=== PATIENT | female | born 1975 | race Caucasian/White ===

== ENCOUNTER 2016-03-29 09:41 | Emergency (ER) | payer BC ==
[2016-03-29 11:43] VITALS: BP 103/63
--- NOTE | 2016-03-29 12:01 | UC ---
Throat Pain/Nasal Shahid HPI - HPI Summary HPI Summary: Sore throat body aches and fever for 3 days - History of Current Complaint Chief Complaint: UCGeneralIllness Stated Complaint: FEVER,SORE THROAT Time Seen by Provider: 03/29/16 12:00 Hx Obtained From: Patient Hx Last Menstrual Period: 03/23/16 ?: No Onset/Duration: Sudden Onset, Lasting Days - 3, Still Present Severity: Moderate Pain Intensity: 7 Pain Scale Used: 0-10 Numeric Cough: None Associated Signs & Symptoms: Positive: Fever - Allergies/Home Medications Allergies/Adverse Reactions: Allergies Allergy/AdvReac Type Severity Reaction Status Date / Time Codeine Allergy Intermediate Hallucinati Verified 03/29/16 11:43 ons Phenytoin [From Dilantin] Allergy Intermediate Hives Verified 03/29/16 11:43 Home Medications: Home Medications Acetaminophen [Acetaminophen Extra Stren] 1,000 mg PO DAILY 03/29/16 [History Confirmed 03/29/16] Escitalopram Oxalate [Lexapro] 10 mg PO DAILY 03/29/16 [History Confirmed ] Ramelteon (NF) [Rozerem (NF)] 8 mg PO DAILY 03/29/16 [History Confirmed 03/29/16 ] PMH/Surg Hx/FS Hx/Imm Hx Previously Healthy: No Endocrine History Of: Denies: Diabetes, Thyroid Disease Cardiovascular History Of: Reports: Cardiac Disorders - SVT (Ablation in 2006) Denies: Hypertension Respiratory History Of: Denies: COPD, Asthma GI/ History Of: Reports: 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 Cardiac Ablation for AV Node Tachycardia,, AV MALFORMATION SURGERY- 1995,, - Family History Known Family History: Positive: Hypertension - Social History Occupation: Employed Full-time - teacher Lives: With Family Alcohol Use: None Substance Use Type: None Smoking Status (MU): Never Smoked Tobacco Review of Systems Constitutional: Fever, Chills, Fatigue Skin: Negative Eyes: Negative ENT: Sore Throat Respiratory: Negative Cardiovascular: Negative Gastrointestinal: Negative Genitourinary: Negative Motor: Negative Neurovascular: Negative Musculoskeletal: Negative Neurological: Negative Psychological: Negative All Other Systems Reviewed And Are Negative: Yes Physical Exam Triage Information Reviewed: Yes Appearance: Well-Nourished, Ill-Appearing - mild, Pain Distress - mild Vital Signs: Initial Vital Signs Temp 98.5 F 03/29/16 11:39 Pulse 90 03/29/16 11:39 Resp 16 03/29/16 11:39 BP 103/63 03/29/16 11:39 Pulse Ox 99 03/29/16 11:39 Vital Signs Reviewed: Yes Eye Exam: Normal Eyes: Positive: Conjunctiva Clear ENT Exam: Other ENT: Positive: Hearing grossly normal, Pharyngeal erythema, TMs normal. Negative: Nasal congestion, Nasal drainage, Tonsillar swelling, Tonsillar exudate, Trismus, Muffled/hoarse voice Dental Exam: Normal Neck: Positive: Supple, Tenderness @ - anterior cervical lymph nodes, Enlarged Nodes @ - anterior cervical Respiratory Exam: Normal Respiratory: Positive: Chest non-tender, Lungs clear, Normal breath sounds, No respiratory distress, No accessory muscle use Cardiovascular Exam: Normal Cardiovascular: Positive: RRR, No Murmur, Pulses Normal, Brisk Capillary Refill Musculoskeletal Exam: Normal Musculoskeletal: Positive: Strength Intact, ROM Intact, No Edema Neurological Exam: Normal Neurological: Positive: Alert, Muscle Tone Normal Psychological Exam: Normal Skin Exam: Normal Diagnostics - Laboratory Diagnostic Studies Completed/Ordered: RST (+) Throat Pain/Nasal Course/Dx - Course Course Of Treatment: fluids, amoxicillin, rest, ibuprofen follow with pcp - Differential Dx/Diagnosis Differential Diagnosis/HQI/PQRI: Otitis Media, Pharyngitis, Sinusitis, URI Provider Diagnoses: Strep Pharyngitis Discharge - Discharge Plan Condition: Stable Disposition: HOME Prescriptions: Amoxicillin CAP* 500 mg PO Q12H #20 cap Patient Education Materials: Amoxicillin (By mouth), Strep Throat (ED) Forms: *Work Release Referrals: Salena Glover MD [Primary Care Provider] - If Needed
[2016-03-29] MEDS ORDERED: Ibuprofen TAB* 600 MG PO ONE (12:10)
== END 2016-03-29 12:32 | disposition home or self-care (01) ==
LOC: UCCORT 09:41
DX: J02.0 Streptococcal pharyngitis (principal); R50.9 Fever, unspecified; N28.89 Other specified disorders of kidney and ureter; I47.1 Supraventricular tachycardia; F41.9 Anxiety disorder, unspecified; G47.00 Insomnia, unspecified; Z87.440 Personal history of urinary (tract) infections; Z88.5 Allergy status to narcotic agent
CPT/HCPCS: 87651; 99212; A9270-GY; G0463

== ENCOUNTER 2016-07-22 14:32 | Emergency (ER) | payer BC ==
[2016-07-22 15:00] VITALS: BP 98/59
--- NOTE | 2016-07-22 15:12 | UC ---
Throat Pain/Nasal Shahid HPI - HPI Summary HPI Summary: patient has had sore throat since last night - History of Current Complaint Chief Complaint: UCRespiratory Stated Complaint: FEVER,THROAT Time Seen by Provider: 07/22/16 15:03 Hx Obtained From: Patient Hx Last Menstrual Period: 06/25/16 ?: No Onset/Duration: Sudden Onset, Lasting Days - 1 Severity: Moderate Cough: None Associated Signs & Symptoms: Positive: Dysphagia - Allergies/Home Medications Allergies/Adverse Reactions: Allergies Allergy/AdvReac Type Severity Reaction Status Date / Time Codeine Allergy Intermediate Hallucinati Verified 07/22/16 15:00 ons Phenytoin [From Dilantin] Allergy Intermediate Hives Verified 07/22/16 15:00 PMH/Surg Hx/FS Hx/Imm Hx Previously Healthy: Yes Endocrine History Of: Denies: Diabetes, Thyroid Disease Cardiovascular History Of: Reports: Cardiac Disorders - SVT (Ablation in 2006) Denies: Hypertension Respiratory History Of: Denies: COPD, Asthma GI/ History Of: Reports: 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 Cardiac Ablation for AV Node Tachycardia,, AV MALFORMATION SURGERY- 1995,,. Uteroscopy 2016 - Family History Known Family History: Positive: Hypertension - Social History Alcohol Use: None Substance Use Type: None Smoking Status (MU): Never Smoked Tobacco Review of Systems Constitutional: Fatigue Skin: Negative Eyes: Negative ENT: Sore Throat Respiratory: Negative Cardiovascular: Negative Gastrointestinal: Negative Genitourinary: Negative Motor: Negative Neurovascular: Negative Musculoskeletal: Negative Neurological: Headache Psychological: Negative All Other Systems Reviewed And Are Negative: Yes Physical Exam Triage Information Reviewed: Yes Appearance: Well-Appearing, Well-Nourished, Pain Distress Vital Signs: Initial Vital Signs Temp 99.7 F 07/22/16 14:55 Pulse 90 07/22/16 14:55 Resp 16 07/22/16 14:55 BP 98/59 07/22/16 14:55 Pulse Ox 98 07/22/16 14:55 Vital Signs Reviewed: Yes Eye Exam: Normal Eyes: Positive: Conjunctiva Clear ENT Exam: Normal ENT: Positive: Hearing grossly normal, Pharyngeal erythema Dental Exam: Normal Neck exam: Normal Neck: Positive: Supple, Nontender, No Lymphadenopathy Respiratory Exam: Normal Respiratory: Positive: Chest non-tender, Lungs clear, Normal breath sounds Cardiovascular Exam: Normal Cardiovascular: Positive: RRR, No Murmur, Pulses Normal Abdominal Exam: Normal Abdomen Description: Positive: Nontender, No Organomegaly, Soft Bowel Sounds: Positive: Present Musculoskeletal Exam: Normal Musculoskeletal: Positive: Strength Intact, ROM Intact, No Edema Neurological Exam: Normal Neurological: Positive: Alert, Muscle Tone Normal Psychological Exam: Normal Skin Exam: Normal Throat Pain/Nasal Course/Dx - Course Course Of Treatment: hx obtained, exam performed, meds reviewed, rapid strep obtained and is negative - Differential Dx/Diagnosis Differential Diagnosis/HQI/PQRI: Influenza, Laryngitis, Otitis Media, Pharyngitis, Sinusitis, URI Provider Diagnoses: Pharyngitis Discharge - Discharge Plan Condition: Stable Disposition: HOME Patient Education Materials: Pharyngitis (ED) Additional Instructions: 1. Salt water gargles, Mucinex twice a day. 2. increase fluid intake and get plenty of rest.
== END 2016-07-22 15:22 | disposition home or self-care (01) ==
LOC: UCCORT 14:32
DX: J02.9 Acute pharyngitis, unspecified (principal)
CPT/HCPCS: 87651; 99211; G0463

== ENCOUNTER 2017-09-14 15:48 | Emergency (ER) | payer BC ==
[2017-09-14 18:41] VITALS: BP 105/63
[2017-09-14] MEDS ORDERED: methylPREDNISolone 125 MG* 2 ML VIAL IM ONE (19:06)
--- NOTE | 2017-09-14 19:18 | UC ---
Skin Complaint HPI - HPI Summary HPI Summary: Patient presents complaining of a rash. It began 2 days ago on the left side of her chest and she notes it to be itching. She states the rash is now diffuse with diffuse itching. She did self treating with [id number] Benadryl which relieved some of the itching. She reports that she did do some bleeding earlier in the week but she also ate shiitake mushrooms on . Those are the only 2 think she can identifies being or different she denies any acute current or recent illness. She has no cough or short of breath and no fever. - History of Current Complaint Chief Complaint: UCRash Time Seen by Provider: 09/14/17 18:52 Stated Complaint: RASH Hx Obtained From: Patient Hx Last Menstrual Period: 08/24/17 Onset/Duration: Gradual Onset Timing: Constant Pain Intensity: 0 Alleviating Factor(s): Antihistamines Associated Signs & Symptoms: Positive: Rash. Negative: Fever, Cough, Wheezing - Allergy/Home Medications Allergies/Adverse Reactions: Allergies Allergy/AdvReac Type Severity Reaction Status Date / Time codeine Allergy Intermediate Hallucinati Verified 09/14/17 18:36 ons phenytoin [From Dilantin] Allergy Intermediate Hives Verified 09/14/17 18:36 Review of Systems Constitutional: Negative Skin: Rash Eyes: Negative ENT: Negative Respiratory: Negative Cardiovascular: Negative Gastrointestinal: Negative Genitourinary: Negative Motor: Negative Neurovascular: Negative Musculoskeletal: Negative Neurological: Negative Psychological: Negative Is Patient Immunocompromised?: No All Other Systems Reviewed And Are Negative: Yes PMH/Surg Hx/FS Hx/Imm Hx - Additional Past Medical History Additional PMH: Sleep disturbance and anxiety - Surgical History Surgical History: Yes Surgery Procedure, Year, and Place: AVM Removal 1995. Cardiac Ablation for AV Node Tachycardia,, AV MALFORMATION SURGERY- 1995,,. Uteroscopy 2016 - Family History Known Family History: Positive: Hypertension - Social History Occupation: Employed Full-time Lives: With Family Alcohol Use: Rare Substance Use Type: None Smoking Status (MU): Never Smoked Tobacco - Immunization History Vaccination Up to Date: Yes Physical Exam Triage Information Reviewed: Yes Appearance: Well-Appearing Vital Signs: Initial Vital Signs Temp 98.8 F 09/14/17 18:37 Pulse 81 09/14/17 18:37 Resp 16 09/14/17 18:37 BP 105/63 09/14/17 18:37 Pulse Ox 100 09/14/17 18:37 Vital Signs Reviewed: Yes Eyes: Positive: Conjunctiva Clear ENT: Positive: Pharynx normal, TMs normal. Negative: Nasal congestion, Nasal drainage Neck: Positive: Supple, Nontender, No Lymphadenopathy Respiratory: Positive: Lungs clear, Normal breath sounds Cardiovascular: Positive: RRR, No Murmur Abdomen Description: Positive: Nontender, No Organomegaly, Soft Bowel Sounds: Positive: Present Musculoskeletal: Positive: ROM Intact Neurological: Positive: Alert Psychological: Positive: Age Appropriate Behavior Skin Exam: Normal Skin: Positive: rashes - Patient is noted to have fairly diffuse rash that is pink and slightly raised; however, some of the areas on her trunk are linear and vesicular in nature. The rash does osvaldo and it is not petechial. There are no burrows or blistering and no scaling or peeling. Course/Dx - Course Course Of Treatment: No concern for infection or infestation. Given history this is most likely a contact dermatitis or a food sensitivity. Either way patient is going to continue with Benadryl as needed to that I will add a Medrol Dosepak. Since the pharmacies are closed this evening we will start with a Solu-Medrol injection this evening as the itching is quite severe. Also no concern for anaphylaxis. - Diagnoses Provider Diagnoses: Acute rash. Probable contact dermatitis and/ or food allergy Discharge - Sign-Out/Discharge Documenting (check all that apply): Patient Departure - Discharge Plan Condition: Stable Disposition: HOME Prescriptions: methylPREDNISolone [Medrol Dosepak 4 MG*] 0 mg PO .SEE AIDEE INSTRUCTION #1 tab Patient Education Materials: Acute Rash (ED) Referrals: Salena Glover MD [Primary Care Provider] - 5 Days - Billing Disposition and Condition Condition: STABLE Disposition: Home
== END 2017-09-14 19:42 | disposition home or self-care (01) ==
LOC: UCCORT 15:48
DX: R21 Rash and other nonspecific skin eruption (principal); Z88.5 Allergy status to narcotic agent; Z88.8 Allergy status to other drugs, medicaments and biological substances
CPT/HCPCS: 96372; 99212; G0463; J2930

== ENCOUNTER 2018-02-23 17:50 | Emergency (ER) | payer BC ==
[2018-02-23 18:27] VITALS: BP 107/65
--- NOTE | 2018-02-23 18:41 | UC ---
Complaint Female HPI - HPI Summary HPI Summary: The patient is a 42-year-old female with a right ureteral diverticulum. She has chronic right flank pain and chronic dysuria. She asked her urine at home with dipsticks. Today her urine showed +1 leukocytes so she came in to have her urine cultured. About 4 days ago she had a low-grade fever. She has no nausea or vomiting. - History Of Current Complaint Chief Complaint: UCGU Stated Complaint: URINARY COMPLAINT Time Seen by Provider: 02/23/18 18:26 Hx Obtained From: Patient Hx Last Menstrual Period: 02/08/18 Onset/Duration: Gradual Onset Timing: Constant Severity Initially: Moderate Severity Currently: Moderate Pain Intensity: 5 Pain Scale Used: 0-10 Numeric Character: Burning Aggravating Factor(s): Urination Associated Signs And Symptoms: Negative: Fever, Back Pain, Vaginal Bleeding/ Discharge, Vaginal Discharge, Nausea, Vomiting(# Of Episodes =), Genital Swelling, Genital Blisters, Retained Foregin Body (Specify) - Allergies/Home Medications Allergies/Adverse Reactions: Allergies Allergy/AdvReac Type Severity Reaction Status Date / Time codeine Allergy Intermediate Hallucinati Verified 02/23/18 18:28 ons phenytoin [From Dilantin] Allergy Intermediate Hives Verified 02/23/18 18:28 PMH/Surg Hx/FS Hx/Imm Hx Previously Healthy: Yes - Surgical History Surgical History: Yes Surgery Procedure, Year, and Place: AVM Removal 1995. Cardiac Ablation for AV Node Tachycardia,, AV MALFORMATION SURGERY- 1995,,. Uteroscopy 2016 - Family History Known Family History: Positive: Hypertension - Social History Alcohol Use: Rare Substance Use Type: None Smoking Status (MU): Never Smoked Tobacco - Immunization History Vaccination Up to Date: Yes Review of Systems All Other Systems Reviewed And Are Negative: Yes Constitutional: Positive: Negative Skin: Positive: Negative Eyes: Positive: Negative ENT: Positive: Negative Respiratory: Positive: Negative Cardiovascular: Positive: Negative Gastrointestinal: Positive: Negative Genitourinary: Positive: Dysuria, Frequency Motor: Positive: Negative Neurovascular: Positive: Negative Musculoskeletal: Positive: Negative Neurological: Positive: Negative Psychological: Positive: Negative Physical Exam Triage Information Reviewed: Yes Appearance: Well-Appearing, No Pain Distress, Well-Nourished Vital Signs: Initial Vital Signs Temp 98.8 F 02/23/18 18:24 Pulse 84 02/23/18 18:24 Resp 16 02/23/18 18:24 BP 107/65 02/23/18 18:24 Pulse Ox 100 02/23/18 18:24 Vital Signs Reviewed: Yes Eyes: Positive: Conjunctiva Clear ENT: Positive: Hearing grossly normal. Negative: Nasal congestion, Nasal drainage Neck: Positive: Supple, Nontender, No Lymphadenopathy Respiratory: Positive: Lungs clear, Normal breath sounds, No respiratory distress, No accessory muscle use Cardiovascular: Positive: RRR, No Murmur Abdomen Description: Positive: Nontender, Soft. Negative: CVA Tenderness (R), CVA Tenderness (L) Bowel Sounds: Positive: Present Diagnostics - Laboratory Diagnostic Studies Completed/Ordered: UA +1 leuks Complaint Female Dx - Differential Dx/Diagnosis Provider Diagnosis: Dysuria Discharge - Sign-Out/Discharge Documenting (check all that apply): Patient Departure All imaging exams completed and their final reports reviewed: No Studies - Discharge Plan Condition: Stable Disposition: HOME Patient Education Materials: Dysuria (ED) Referrals: Salena Glover MD [Primary Care Provider] - Additional Instructions: A urine culture is pending Will hold off on antibiotics unless the culture is (+) If you develop a fever or worsening symptoms call - Billing Disposition and Condition Condition: STABLE Disposition: Home
--- NOTE | 2018-02-26 07:10 | UC ---
- Progress Note Progress Note: Pt with + Group B Strep urine (25-50,000) Sent Rx Cephalexin Please contact pt and update Rx final culture pending [email or web address] Course/Dx - Diagnoses Provider Diagnoses: Dysuria Discharge - Sign-Out/Discharge Documenting (check all that apply): Post-Discharge Follow Up All imaging exams completed and their final reports reviewed: No Studies - Discharge Plan Condition: Stable Disposition: HOME Patient Education Materials: Dysuria (ED) Referrals: Salena Glover MD [Primary Care Provider] - Additional Instructions: A urine culture is pending Will hold off on antibiotics unless the culture is (+) If you develop a fever or worsening symptoms call - Billing Disposition and Condition Condition: STABLE Disposition: Home
== END 2018-02-23 18:56 | disposition home or self-care (01) ==
LOC: UCCORT 17:50
DX: R30.0 Dysuria (principal); N28.89 Other specified disorders of kidney and ureter; Z88.5 Allergy status to narcotic agent; Z88.8 Allergy status to other drugs, medicaments and biological substances
CPT/HCPCS: 81003; 87077; 87086; 99211; G0463

== ENCOUNTER 2018-09-22 17:47 | Emergency (ER) | payer BC ==
[2018-09-22 18:11] VITALS: BP 108/61
--- NOTE | 2018-09-22 19:12 | ED ---
GI/ HPI - HPI Summary HPI Summary: 42 yr old female with the history of structural renal issue on the right side that predisposes her to kidney infections. She states she also gets kidney stones. The patient has a a week of intermittent right flank and right lower quadrant pain. She is afraid she has another stone. She could not get into DR Humphrey this afternoon from [facility] urology. She wants and ultrasound. She states she is followed with ultrasounds. She has had some low grade fever as well. - History of Current Complaint Chief Complaint: UCGU Time Seen by Provider: 09/22/18 18:22 Stated Complaint: FEVER,KIDNEY AREA PAIN Hx Last Menstrual Period: week of august 28 Pain Intensity: 5 - Allergy/Home Medications Allergies/Adverse Reactions: Allergies Allergy/AdvReac Type Severity Reaction Status Date / Time codeine Allergy Intermediate Hallucinati Verified 09/22/18 18:05 ons phenytoin [From Dilantin] Allergy Intermediate Hives Verified 09/22/18 18:05 Home Medications: Home Medications Levocetirizine Dihydrochloride [Allergy Relief] 5 mg PO DAILY 09/22/18 [History Confirmed 09/22/18] PMH/Surg Hx/FS Hx/Imm Hx Endocrine/Hematology History: Denies: Hx Diabetes, Hx Thyroid Disease Cardiovascular History: Denies: Hx Hypertension Respiratory History: Denies: Hx Asthma, Hx Chronic Obstructive Pulmonary Disease (COPD) GI History: Denies: Hx Ulcer History: Reports: Hx Renal Disease - "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 Cardiac Ablation for AV Node Tachycardia,, AV MALFORMATION SURGERY- 1995,,. Uteroscopy 2016 Infectious Disease History: No Infectious Disease History: Denies: Hx Hepatitis, Hx Human Immunodeficiency Virus (HIV), Traveled Outside the [place] in Last 30 Days - Family History Known Family History: Positive: Hypertension - Social History Alcohol Use: Rare Substance Use Type: Reports: None Smoking Status (MU): Never Smoked Tobacco Review of Systems Positive: Chills, Fatigue Positive: flank pain All Other Systems Reviewed And Are Negative: Yes Physical Exam Triage Information Reviewed: Yes Vital Signs On Initial Exam: Initial Vitals Temp Pulse Resp BP Pulse Ox 98.2 F 76 16 108/61 100 09/22/18 18:06 09/22/18 18:06 09/22/18 18:06 09/22/18 18:06 09/22/18 18:06 Vital Signs Reviewed: Yes Appearance: Positive: Well-Appearing, No Pain Distress Skin: Positive: Warm, Skin Color Reflects Adequate Perfusion Head/Face: Positive: Normal Head/Face Inspection Eyes: Positive: Normal ENT: Positive: Normal ENT inspection Respiratory/Lung Sounds: Positive: Clear to Auscultation, Breath Sounds Present Cardiovascular: Positive: RRR. Negative: Murmur Abdomen Description: Negative: CVA Tenderness (R), CVA Tenderness (L), Distended Musculoskeletal: Positive: Strength/ROM Intact Neurological: Positive: Sensory/Motor Intact, Alert, Oriented to Person Place, Time, CN Intact II-III, Normal Gait, Speech Normal Psychiatric: Positive: Normal Diagnostics - Vital Signs Vital Signs Temp Pulse Resp BP Pulse Ox 09/22/18 18:06 98.2 F 76 16 108/61 100 - Laboratory Lab Results: Lab Results 09/22/18 Range/Units 18:24 POC Urine Color Yellow POC Urine Clarity Clear POC Urine pH 7.5 (5-9) POC Ur Specif [place] 1.015 (1.010-1.030) POC Urine Protein Negative (Negative) POC Ur Glucose (UA) Negative (Negative) POC Urine Ketones Negative (Negative) POC Urine Blood Negative (Negative) POC Urine Nitrite Negative (Negative) POC Urine Bilirubin Negative (Negative) POC Urine Urobilinogen 0.2 (Negative) POC U Leukocyte Esteras Trace A (Negative) Lab Statement: Any lab studies that have been ordered have been reviewed, and results considered in the medical decision making process. GIGU Course/Dx - Course Course Of Treatment: 42 yr old female with flank pain, trace leuk est. I strongly recommended the patient go have labs, microscopic urine and US at the ER this evening given her history. She verbalized an understanding of this and states she will do this. Vitals stable at this time. She is presently pain free. - Diagnoses Provider Diagnoses: Right flank pain, UTI (urinary tract infection) Discharge - Sign-Out/Discharge Documenting (check all that apply): Patient Departure All imaging exams completed and their final reports reviewed: No Studies - Discharge Plan Condition: Good Disposition: HOME-RECOMMEND TO ED Patient Education Materials: Flank Pain (ED) Referrals: Salena Glover MD [Primary Care Provider] - Additional Instructions: WITH YOUR HISTORY OF KIDNEY STONES< KIDNEY INFECTIONS you should go to the ER now for labs, ultrasound imaging and further work up to be sure you do not have any obstruction or abnormality in your labs. DO not delay. People can become very ill from sepsis from obstructing kidney stones and infection. - Billing Disposition and Condition Condition: GOOD Disposition: Home-Recommend to ED
== END 2018-09-22 19:24 | disposition home health service (06) ==
LOC: UCCORT 17:47
DX: R10.9 Unspecified abdominal pain (principal); N39.0 Urinary tract infection, site not specified; Q63.9 Congenital malformation of kidney, unspecified; Z87.442 Personal history of urinary calculi; Z86.19 Personal history of other infectious and parasitic diseases
CPT/HCPCS: 81003; 87086; 99212; G0463